=== PATIENT | female | born 1980 | race Caucasian/White ===

== ENCOUNTER → 2019-05-15 09:03 | Outpatient (BNVA) | payer MEDICAID, SELFPAY | PROVIDERS: Family Provider Nurse Practitioner Family; PCP Nurse Practitioner Family; Visit Provider Nurse Practitioner Family | DX: J02.0 Streptococcal pharyngitis (principal); J02.9 Acute pharyngitis, unspecified; R03.0 Elevated blood-pressure reading, without diagnosis of hypertension | CPT/HCPCS: 80053; 85025; 86308; 87081; 87880 ==

== ENCOUNTER → 2019-11-28 15:46 | Outpatient (BNVA) | payer MEDICAID, SELFPAY | PROVIDERS: Family Provider Nurse Practitioner Family; PCP Nurse Practitioner Family; Visit Provider Family Medicine | DX: J02.9 Acute pharyngitis, unspecified (principal); Z20.828 Contact with and (suspected) exposure to other viral communicable diseases | CPT/HCPCS: 87071; 87635 ==

== ENCOUNTER → 2020-05-23 09:28 | Outpatient (BNVA) | payer MEDICAID, SELFPAY | PROVIDERS: Family Provider Nurse Practitioner Family; PCP Nurse Practitioner Family; Visit Provider Nurse Practitioner Family | DX: N30.01 Acute cystitis with hematuria (principal); M54.9 Dorsalgia, unspecified; I10 Essential (primary) hypertension; R07.9 Chest pain, unspecified | CPT/HCPCS: 81003; 87086 ==

== ENCOUNTER → 2020-06-06 11:49 | Outpatient (BNVA) | payer MEDICAID, SELFPAY | PROVIDERS: Family Provider Nurse Practitioner Family; PCP Nurse Practitioner Family; Visit Provider Nurse Practitioner Family | DX: Z98.890 Other specified postprocedural states (principal); I10 Essential (primary) hypertension | CPT/HCPCS: 80048 ==

== ENCOUNTER → 2020-07-12 10:31 | Outpatient (BNVA) | payer MEDICAID, SELFPAY | PROVIDERS: Family Provider Nurse Practitioner Family; PCP Nurse Practitioner Family; Visit Provider Nurse Practitioner Family | DX: M25.552 Pain in left hip (principal) | CPT/HCPCS: 73502 ==

== ENCOUNTER → 2022-07-24 09:00 | Outpatient (BNVA) | payer OTHER, SELFPAY | PROVIDERS: Family Provider Nurse Practitioner Family; PCP Nurse Practitioner Family; Visit Provider Nurse Practitioner Family | DX: M25.562 Pain in left knee (principal) | CPT/HCPCS: 73562 ==

== ENCOUNTER → 2022-10-29 17:09 | Outpatient (BNVA) | payer OTHER, SELFPAY | PROVIDERS: Family Provider Nurse Practitioner Family; PCP Nurse Practitioner Family; Visit Provider Family Medicine | DX: R30.0 Dysuria (principal) | CPT/HCPCS: 81003 ==

== ENCOUNTER → 2022-11-09 10:15 | Outpatient (BNVA) | payer OTHER, SELFPAY | PROVIDERS: Family Provider Nurse Practitioner Family; PCP Nurse Practitioner Family; Visit Provider Nurse Practitioner Family | DX: R31.9 Hematuria, unspecified (principal) | CPT/HCPCS: 80053; 87086; 87491; 87591; 87661 ==

== ENCOUNTER → 2023-02-23 09:27 | Outpatient (BNVA) | payer OTHER, SELFPAY | PROVIDERS: Family Provider Nurse Practitioner Family; PCP Nurse Practitioner Family; Visit Provider Nurse Practitioner Family | DX: R05.9 Cough, unspecified (principal); J01.00 Acute maxillary sinusitis, unspecified; R50.9 Fever, unspecified; J01.10 Acute frontal sinusitis, unspecified | CPT/HCPCS: 87400; 87426 ==

== ENCOUNTER 2023-11-03 01:33 | Emergency (ER) | payer OTHER, SELFPAY ==
--- NOTE | 2023-11-03 01:51 | XRR_ITS ---
PROCEDURE INFORMATION: Exam: XR Left Forearm Exam date and time: 11/03/2023 2:06 AM Age: 42 years old Clinical indication: Injury or trauma; Other: Caught in equipment; Work related; Blunt trauma (contusions or hematomas); Arm, lower; Injury date: 11/03/2023; Injury details: Pts left lower arm was caught between machinery and a piece of wood; Additional info: Crush injury left proxima forearm TECHNIQUE: Imaging protocol: Radiologic exam of the left forearm. Views: 2 views. COMPARISON: No relevant prior studies available. FINDINGS: Bones/joints: No fracture. Soft tissues: Marked soft tissue swelling along the dorsal aspect of the forearm. XR/XR forearm LT 2V [id number] IMPRESSION: 1. Marked soft tissue swelling along the dorsal aspect of the forearm. 2. No fracture.
[2023-11-03 01:55] VITALS: BP 194/133; PULSE 97; RESP 18; TEMP 37.1; O2SAT 99; BMI 25.7
[2023-11-03 02:03] VITALS: BP 179/118; PULSE 93; RESP 16; O2SAT 98
--- NOTE | 2023-11-03 02:32 | W.ED.EXTPRO ---
HPI - Extremity Problem General: Chief complaint: Extremity Injury, Upper Stated complaint: Left Arm Injury Time Seen by Provider: 11/03/23 01:51 History of Present Illness: 35-year-old female who presents emergency room from work after having an injury at work. Her left arm got caught between a machine and a wood pile that was being moved. She has a large hematoma on the left forearm. She has some difficulty moving her fingers secondary to pain but has good sensation and can move them. Neurovascularly intact no other injuries. Related Data Previous Rx's Medication Instructions Recorded diclofenac sodium 1 % topical gel 4 g topical QID PRN pain #100 grams 10/01/23 (Voltaren Arthritis Pain) diclofenac sodium 75 mg 75 mg PO BID PRN pain #60 tabs 10/01/23 tablet,delayed release diclofenac sodium 50 mg 50 mg PO BID PRN pain #14 tabs 11/03/23 tablet,delayed release hydrocodone 5 mg-acetaminophen 325 1 tab PO Q6H PRN pain #20 tabs 11/03/23 mg tablet ondansetron 8 mg disintegrating 8 mg PO Q6H #14 tabs 11/03/23 tablet polyethylene glycol 3350 17 17 g PO DAILY #510 grams 11/03/23 gram/dose oral powder (Miralax) Allergies Allergy/AdvReac Type Severity Reaction Status Date / Time No Known Allergies Allergy Verified 10/29/22 17:06 Review of Systems Narrative: Constitutional symptoms: Negative except as documented in HPI. Skin symptoms: Negative except as documented in HPI. Eye symptoms: Negative except as documented in HPI. ENMT symptoms: Negative except as documented in HPI. Respiratory symptoms: Negative except as documented in HPI. Cardiovascular symptoms: Negative except as documented in HPI. Gastrointestinal symptoms: Negative except as documented in HPI. Genitourinary symptoms: Negative except as documented in HPI. Musculoskeletal symptoms: Negative except as documented in HPI. Neurologic symptoms: Negative except as documented in HPI. Psychiatric symptoms: Negative except as documented in HPI. Endocrine symptoms: Negative except as documented in HPI. [facility] ED PFSH: Medical History Chronic eczema of foot Surgical History Hx of tubal ligation Social History Smoking and tobacco/nicotine status: unknown if used tobacco/nicotine Second hand smoke exposure: No Alcohol intake: current Alcohol intake frequency: few times a month Substance/Drug Use: never Lives independently: Yes Household members: children Marital status: Current occupational status: employed Current occupation: [employer] Current gender identity: Female Special elizabeth needs: No Agree to transfusion: Yes Female Reproductive History: Date of last menstrual period: 10/03/23 Physical Exam Narrative: EXAM NARRATIVE: General: Alert, no acute distress. Skin: warm and dry Head: Normocephalic Neck: Trachea midline Eye: Extraocular movements are intact. Ears, nose, mouth and throat: Oral mucosa moist Respiratory: Respirations are non-labored Musculoskeletal: Large hematoma over the proximal dorsal left forearm. This is very tender to palpation. There is an abrasion superficial laceration as well. She is able to move her fingers but with much difficulty because of pain. Good sensation. Vascularly intact. Neurological: Alert and oriented, No focal neurological deficit observed. Psychiatric: Cooperative, appropriate mood & affect. Course Vital Signs: Vital signs: Vital Signs Temperature 98.7 F 11/03/23 01:55 Pulse Rate 93 11/03/23 02:03 Respiratory Rate 16 11/03/23 02:03 Blood Pressure 179/118 11/03/23 02:03 Pulse Oximetry 98 11/03/23 02:03 MDM - Extremity (Nontraumatic) Medical Decision Making X-ray of the left forearm: There is a large soft tissue swelling but no obvious fractures. Films were interpreted by myself the emergency room provider and pending final radiology review. Assessment and plan: Hematoma of the arm Crush injury ?P.manuel De Leon and Devin in the emergency room. Drug screen was sent for work injury - Discharged home - Discussed findings and plan with patient. Answered any questions. - All laboratory values were reviewed and interpreted personally by myself, the ER physician - All imaging was reviewed and interpreted personally by myself, the ER physician. - Evaluation and treatment of this problem were appropriate in the emergency setting Lab Data Laboratory Results Urine Opiates Screen Negative ng/mL (Negative) 11/03/23 01:56 Ur Barbiturates Screen Negative ng/mL (Negative) 11/03/23 01:56 Ur Phencyclidine Scrn Negative ng/mL (Negative) 11/03/23 01:56 Ur Amphetamines Screen Negative ng/mL (Negative) 11/03/23 01:56 U Benzodiazepines Scrn Negative ng/mL (Negative) 11/03/23 01:56 Urine Cocaine Screen Negative ng/mL (Negative) 11/03/23 01:56 U Marijuana (THC) Screen Positive ng/mL (Negative) H 11/03/23 01:56 XR interpretation done by ED provider, pending radiology final review Discharge Plan Discharge Patient Disposition: Home Clinical Impression: Hematoma of left forearm, Crush injury Condition: Stable Prescriptions: New ondansetron 8 mg tablet,disintegrating 8 mg PO Q6H Qty: 14 0RF Rx Instructions: Take 1/2-1 tab every 6 hours as needed for nausea and vomiting diclofenac sodium 50 mg tablet,delayed release (DR/EC) 50 mg PO BID PRN (Reason: pain) Qty: 14 0RF Miralax 17 gram/dose powder 17 g PO DAILY Qty: 510 0RF Rx Instructions: Take 1 scoop daily while taking pain medications. hydrocodone-acetaminophen 5-325 mg tablet 1 tab PO Q6H PRN (Reason: pain) Qty: 20 0RF No Action diclofenac sodium 75 mg tablet,delayed release (DR/EC) 75 mg PO BID PRN (Reason: pain) Qty: 60 0RF Rx Instructions: no ibuprofen with this diclofenac sodium [Voltaren Arthritis Pain] 1 % gel 4 g topical QID PRN (Reason: pain) Qty: 100 0RF methylprednisolone acetate [Depo-Medrol] 80 mg/mL suspension 80 mg intra-articular ONCE Qty: 1 0RF triamcinolone acetonide [Kenalog] 40 mg/mL suspension 40 mg intra-articular ONCE Qty: 1 0RF Discharge Orders: Discharge ED (Routine); Ordered 11/03/23 Ordered By: Kallie Rivera Referrals: Claudia Pinto FNP [Primary Care Provider] - Ramses Campo DO [Physician] - 1-3 days (Please call for a follow-up appointment.) Discharge Diet: Usual diet Discharge Activity: Resume usual activity Patient Instructions: Opioid Safety, Pain Management Activity Restrictions/Additional Instructions: Thank you for choosing [facility] for your healthcare needs today. Please realize this is an emergency room and that we are providing you with a medical screening exam and this may not be complete and all inclusive of all the testing and or work up that you may need to determine your ailment or severity of your illness. You have been screened and evaluated and felt safe for discharge. Health conditions do change or evolve sometimes and as such it is important that you follow up with your Primary Doctor to be re checked, 3-5 days is a general good time frame for follow up. You are always welcome to return to the ED for re assessment if your symptoms are worsening or you have new concerns Coding Level of Care Code ED Product Marketing Specialist for Josse Iniguez
[2023-11-03 02:34] LABS: Amphetamines Screen Urine Negative (Negative); Barbiturates Screen Urine Negative (Negative); Benzodiazepines Screen Urine Negative (Negative); Cocaine Screen Urine Negative (Negative); Opiate Screen Urine Negative (Negative); PCP Screen Urine Negative (Negative); THC Screen Urine Positive (Negative)
[2023-11-03] MEDS: ondansetron 4 MG Tablet PO (02:37)
[2023-11-03] MEDS: HYDROcodone-acetaminophen 10-325 mg Tablet 1 TAB PO (02:37)
== END 2023-11-03 02:52 | disposition home or self-care (01) ==
PROVIDERS: Emergency Provider Emergency Medicine; PCP Nurse Practitioner Family
DX: S50.12XA Contusion of left forearm, initial encounter (principal); S57.82XA Crushing injury of left forearm, initial encounter; W31.9XXA Contact with unspecified machinery, initial encounter; Y99.0 Civilian activity done for income or pay
CPT/HCPCS: 73090; 80306; 99284; Q0162

== ENCOUNTER → 2023-11-09 14:35 | Outpatient (BNVA) | payer OTHER, SELFPAY | PROVIDERS: PCP Nurse Practitioner Family; Visit Provider Physician Assistant | DX: S50.12XA Contusion of left forearm, initial encounter; W31.9XXA Contact with unspecified machinery, initial encounter | CPT/HCPCS: 73090 ==

== ENCOUNTER → 2023-11-26 08:12 | Outpatient (BNVA) | payer OTHER, SELFPAY | PROVIDERS: PCP Nurse Practitioner Family; Visit Provider Physician Assistant | DX: S50.12XA Contusion of left forearm, initial encounter; W23.0XXA Caught, crushed, jammed, or pinched between moving objects, initial encounter | CPT/HCPCS: 73090 ==

== ENCOUNTER 2023-12-03 09:16 | Outpatient (CLI) | payer OTHER, SELFPAY ==
--- NOTE | 2023-12-03 09:45 | MR_ITS ---
WS: [id number] MRI LEFT FOREARM WITHOUT CONTRAST. COMPARISON: Radiograph 11/26/2023 Multiplanar, multisequence imaging is performed without contrast. History: Crush incident at work on 11/03/2023. Continued mass. Continued pain. There is a well-circumscribed ovoid mass centered along the posterior mid forearm. The mass extends o alicia a length of 3.4 cm and transversely by 2.0 cm x 1.0 cm anterior posterior. This mass is in contac t and slightly deforms the extensor digitorum and extensor digiti minimi muscles. There is no signifi cant edema within any of the muscle groups. There is a small amount of superficial fluid extending ov er the fascial planes of the muscles associated closely with the hematoma. On the T1 sequences there is intermediate signal with a few scattered areas of decreased signal. The marrow signal is normal within the radius and ulna. No muscle atrophy. MR/MR forearm LT wo con* [id number] IMPRESSION: 1. Soft tissue mass along the dorsal forearm measures 2.0 x 1.0 x 3.4 cm and i s most consistent with an organizing hematoma. Slight mass effect upon the exte nsor digitorum and extensor digiti minimi muscles with a small amount of fluid along the fascial planes. 2. No muscle injury identified. No muscle atrophy. 3. No fracture.
== END 2023-12-03 09:17 | disposition home or self-care (01) ==
LOC: RAD 09:16
PROVIDERS: PCP Nurse Practitioner Family; Visit Provider Physician Assistant
DX: M79.603 Pain in arm, unspecified (principal); T14.8XXA Other injury of unspecified body region, initial encounter; S40.022A Contusion of left upper arm, initial encounter; R22.32 Localized swelling, mass and lump, left upper limb; Y93.9 Activity, unspecified; Y92.9 Unspecified place or not applicable; Y99.9 Unspecified external cause status
CPT/HCPCS: 73218

== ENCOUNTER 2023-12-06 14:55 | Outpatient (CLI) | payer OTHER, SELFPAY ==
--- NOTE | 2023-12-06 15:15 | MR_ITS ---
WS: [id number] EXAMINATION: MR elbow LT wo con* [id number] ORDER DATE: 12/06/2023 3:52 PM COMPARISON: None. HISTORY: elbow pain/crush injury to left upper extremity CONTRAST: None.None. TECHNIQUE: Axial T1, axial T2 fat sat, coronal T1, coronal proton density fat sat, coronal STIR, sagi ttal proton density fat sat, and axial fat sat 3D performed. FINDINGS: Normal anatomic alignment. Normal bone marrow signal. Radial and ulnar collateral ligaments appear in tact. No acute fractures. Normal coronoid process. Radial head appears normal. No significant joint e ffusion. Small amount of subcutaneous edema overlying the dorsal elbow. Normal triceps insertion. Nor mal biceps tendon insertion. Normal extensor and flexor common tendon origins. MR/MR elbow LT wo con* [id number] IMPRESSION: No acute elbow findings.
== END 2023-12-06 14:56 | disposition home or self-care (01) ==
LOC: RAD 14:56
PROVIDERS: PCP Nurse Practitioner Family; Visit Provider Physician Assistant
DX: S50.12XA Contusion of left forearm, initial encounter (principal); M25.522 Pain in left elbow; X58.XXXA Exposure to other specified factors, initial encounter
CPT/HCPCS: 73221

== ENCOUNTER 2023-12-07 09:14 | Outpatient (CLI) | payer OTHER, SELFPAY ==
--- NOTE | 2023-12-07 09:30 | MR_ITS ---
WS: [id number] EXAMINATION: MR wrist LT wo con* [id number] ORDER DATE: 12/07/2023 10:07 AM COMPARISON: None. HISTORY: wrist pain/crush injury to left upper extremity CONTRAST: None. TECHNIQUE: Axial T1, axial T2 fat sat, coronal T1, coronal proton density fat sat, coronal STIR, delgado nal 3D, and sagittal T1 performed. After contrast, axial T1 fat sat, coronal T1 fat sat, and sagittal T1 fat sat were performed. FINDINGS: Some images are limited due to motion. Normal anatomic alignment. No acute fractures. Normal DRUJ. Normal scaphoid. Normal lunate. Cystic de generative changes involving the capitate and hamate. Slight ulna minus variance. Suspected small tea r of the TFCC ulna insertion. Moderate narrowing of the radiocarpal joint. Normal carpal tunnel. Small amount of tenosynovitis along the extensor digitorum tendons. Palmar dis location ECU tendon along the distal ulna. Recommend correlation for ulnar wrist pain. Findings suspi cious for stripping of the ECU subsheath. MR/MR wrist LT wo con* [id number] IMPRESSION: 1. Mild ulna minus variance with suspected tear of the ulnar insertion TFCC. 2. Moderate narrowing of the radiocarpal joint. Scaphoid and lunate appear nor mal. 3. Cystic degenerative changes involving the distal carpal row. 4. Dislocation of the extensor carpi ulnaris with suspected stripping of the E CU subsheath. Palmar dislocation of the ECU tendon. Recommend correlation for u lnar-sided wrist pain.
== END 2023-12-07 09:15 | disposition home or self-care (01) ==
LOC: RAD 09:15
PROVIDERS: PCP Nurse Practitioner Family; Visit Provider Physician Assistant
DX: M85.642 Other cyst of bone, left hand (principal); S63.095A Other dislocation of left wrist and hand, initial encounter; S40.022A Contusion of left upper arm, initial encounter; X58.XXXA Exposure to other specified factors, initial encounter
CPT/HCPCS: 73221

== ENCOUNTER 2024-03-23 10:49 | Outpatient (RCR) | payer OTHER, SELFPAY | END 2024-04-21 23:59 | disposition home or self-care (01) | LOC: SOT 10:49 | PROVIDERS: Visit Provider Orthopaedic Surgery | DX: M65.849 Other synovitis and tenosynovitis, unspecified hand (principal) | CPT/HCPCS: 97022; 97035; 97110; 97166; 97530 ==

== ENCOUNTER 2024-04-22 06:00 | Outpatient (RCR) | payer OTHER, SELFPAY | END 2024-05-19 23:59 | disposition home or self-care (01) | LOC: SOT 06:00 | PROVIDERS: Visit Provider Orthopaedic Surgery | DX: M65.842 Other synovitis and tenosynovitis, left hand (principal) | CPT/HCPCS: 97035; 97110 ==

== ENCOUNTER 2024-05-20 06:00 | Outpatient (RCR) | payer OTHER, SELFPAY | END 2024-06-19 23:59 | disposition home or self-care (01) | LOC: SOT 06:00 | PROVIDERS: Visit Provider Orthopaedic Surgery | DX: M65.842 Other synovitis and tenosynovitis, left hand (principal) | CPT/HCPCS: 97110 ==

== ENCOUNTER 2024-06-20 05:00 | Outpatient (RCR) | payer OTHER, SELFPAY | END 2024-07-19 23:59 | disposition home or self-care (01) | LOC: SOT 05:00 | PROVIDERS: Visit Provider Orthopaedic Surgery | DX: M65.842 Other synovitis and tenosynovitis, left hand (principal) | CPT/HCPCS: 97110 ==

== ENCOUNTER → 2024-08-22 10:03 | Outpatient (BNVA) | payer OTHER, SELFPAY | PROVIDERS: Visit Provider Student in an Organized Health Care Education/Training Program | DX: M25.522 Pain in left elbow (principal); G56.03 Carpal tunnel syndrome, bilateral upper limbs; S63.592A Other specified sprain of left wrist, initial encounter; X58.XXXA Exposure to other specified factors, initial encounter | CPT/HCPCS: 73080 ==

== ENCOUNTER → 2024-09-18 13:04 | Outpatient (BNVA) | payer OTHER, SELFPAY | PROVIDERS: PCP Nurse Practitioner Family; Visit Provider Nurse Practitioner Family | DX: R07.81 Pleurodynia (principal) | CPT/HCPCS: 71101 ==

== ENCOUNTER 2024-10-04 15:24 | Outpatient (CLI) | payer OTHER, SELFPAY ==
--- NOTE | 2024-10-04 15:45 | US_ITS ---
WS: [id number] ULTRASOUND SOFT TISSUES LEFT lateral chest wall. HISTORY: R07.9 - Chest pain, unspecified COMPARISON: None available. TECHNIQUE: 2-D and color Doppler imaging is submitted. Ultrasound is performed over the LEFT lateral chest wall as directed by the patient. No soft tissue abnormality is identified. There is no mass or mass effect. Normal subcutaneous tissues. No fluid. No solid mass. US/US soft tissue/extremity [id number] IMPRESSION: Negative soft tissue ultrasound LEFT lateral chest wall.
== END 2024-10-04 15:25 | disposition home or self-care (01) ==
LOC: RAD 15:27
PROVIDERS: PCP Nurse Practitioner Family; Visit Provider Nurse Practitioner Family
DX: R10.9 Unspecified abdominal pain (principal)
CPT/HCPCS: 76882

== ENCOUNTER 2024-10-12 11:56 | Outpatient (CLI) | payer SELFPAY ==
--- NOTE | 2024-10-12 12:21 | MR_ITS ---
WS: [id number] MRI CERVICAL SPINE NONCONTRAST TECHNIQUE: Sagittal T1, T2 and STIR imaging. Axial T2, gradient, and fiesta imaging. CLINICAL INFORMATION: LT arm injury FINDINGS: Straightening of the normal cervical lordosis. Cord signal is normal. Mild disc bulging in the mid cervical spine. C2-C3: Normal. C3-C4: Mild disc bulging. Mild LEFT bony foraminal narrowing. C4-C5: Shallow central protrusion. Tiny annular fissure. Mild facet arthropathy. Mild LEFT bony foraminal narrowing. C5-C6: Central disc osteophyte protrusion. Mild central canal stenosis. Moderate bilateral bony foraminal narrowing. Moderate facet arthropathy with uncovertebral joint hypertrophy. C6-C7: Central protrusion with mild central canal stenosis. Severe RIGHT and moderate LEFT bony foraminal narrowing. Moderate facet arthropathy. C7-T1: Spinal canal and foramen are patent. Visualized brain stem structures: Normal. Prevertebral soft tissues: Normal. Tiny RIGHT thyroid nodule. MR/MR cervical spin wo con* [id number] IMPRESSION: 1. Mild central canal stenosis due to central disc osteophyte protrusions C5-C 6 and C6-C7. 2. Moderate to severe bony foraminal narrowing bilateral C5-C6 and bilateral C 6-7
== END 2024-10-12 11:57 | disposition home or self-care (01) ==
PROVIDERS: PCP Nurse Practitioner Family; Visit Provider Student in an Organized Health Care Education/Training Program
DX: G56.42 Causalgia of left upper limb (principal); M48.02 Spinal stenosis, cervical region; M25.78 Osteophyte, vertebrae
CPT/HCPCS: 72141

== ENCOUNTER → 2024-11-06 11:12 | Outpatient (BNVA) | payer OTHER, SELFPAY | PROVIDERS: PCP Nurse Practitioner Family; Visit Provider Nurse Practitioner Family | DX: I10 Essential (primary) hypertension (principal); E04.1 Nontoxic single thyroid nodule | CPT/HCPCS: 80053; 80061; 82306; 82607; 83735; 84439; 84443; 85025 ==

== ENCOUNTER 2024-11-10 13:35 | Outpatient (CLI) | payer OTHER, SELFPAY ==
--- NOTE | 2024-11-10 14:00 | US_ITS ---
WS: [id number] THYROID ULTRASOUND HISTORY: E04.1 - Nontoxic single thyroid nodule COMPARISON: MRI 10/12/2024 Right lobe: 1.5 cm x 2.0 cm x 4.5 cm (w x ap x l). Volume: 6.5 cm3. Very slightly enlarged and heterogeneous RIGHT thyroid. Increased vascularity. Hypoechoic nodules measuring 4 x 3 x 5 mm in the superior gland. No echogenic foci. Left lobe: 1.4 cm x 1.9 cm x 4.3 cm (w x ap x l). Volume: 5.2 cm3. Normal sized gland with mild heterogeneity. No mass identified. Very slight increased vascularity. Isthmus: 0.5 cm. US/US thyroid [id number] IMPRESSION: TI-RADS 3; mildly suspicious. RIGHT thyroid nodule superior pole. No additional ultrasound follow-up necessary as per TI-RADS criteria.
== END 2024-11-10 13:36 | disposition home or self-care (01) ==
PROVIDERS: PCP Nurse Practitioner Family; Visit Provider Nurse Practitioner Family
DX: E04.1 Nontoxic single thyroid nodule (principal)
CPT/HCPCS: 76536

== ENCOUNTER 2024-11-24 09:03 | Day surgery (SDC) | payer OTHER, SELFPAY ==
[2024-11-24] VITALS (7 sets, daily range): BP systolic 137–193; BP diastolic 108–122; PULSE 75–87; RESP 16–18; TEMP 36.3–36.6; O2SAT 93–97
[2024-11-24 09:27] LABS: OR HCG Qualitative Urine Negative (Negative)
--- NOTE | 2024-11-24 09:36 | P.ANESASSM_ITS ---
Pre-Anesthetic Assessment Height/Weight: Height 5 ft 4 in Preop Diagnosis: Carpal tunnel syndrome Operation Date: 11/24/24 10:25 Proposed Procedures p Carpal Tunnel Release(Right) - Ramses Campo, Was Beta Dipak taken within 24 hours: N/A Was Clonidine taken within 24 hours: N/A Social Tobacco and No alcohol Exam alert, oriented x 3, clear to auscultation bilaterally and regular rate & rhythm Airway Submandibular: within normal limits Cervical ROM: within normal limits Mallampati: Class III Comments: Comments: Multiple missing teeth, denies any loose Anesthetic Plan ASA status: 3 Anesthesia: MAC Other: No prior issues with anesthesia N.p.o. since yesterday evening Current smoker, nicotine and marijuana Denies any cardiac issues. States she gets whitecoat syndrome METs greater than 4 Plan for MAC anesthesia with local via surgeon Medications/Allergies Home Medications ?Medication ?Instructions ?Recorded ?Confirmed ?Last Taken ?Type diclofenac sodium 1 % topical gel 4 g topical QID PRN pain #100 grams 10/01/23 11/23/24 Unknown Rx (Voltaren Arthritis Pain) ibuprofen 200 mg capsule 200 mg PO Q6H PRN Pain 12/2011/23/24 Unknown History magnesium hydroxide 400 mg/5 mL 5 ml PO DAILY PRN Cons tipation 12/21/23 11/23/24 Unknown History oral suspension (Milk of Magnesia) hydrocodone 10 mg-acetaminophen 1 tab PO Q6H PRN pain 7 days #28 12/28/23 11/23/24 11/24/24 Rx 325 mg tablet tabs pregabalin 100 mg capsule 100 mg PO BID 10/03/2411/2311/24/24 History Allergies Allergy/AdvReac Type Severity Reaction Status Date / Time No Known Allergies Allergy Verified 11/03/24 13:49 [facility] Anesthesia Medical History Chronic eczema of foot Surgical History Hx of tubal ligation Social History Smoking and tobacco/nicotine status: current every day tobacco/nicotine user cigarettes Packs smoked per day: 1 Years cigarettes smoked: 20 Second hand smoke exposure: No Alcohol intake: current Alcohol intake frequency: few times a month Substance/Drug Use: never Lives independently: Yes Household members: children Marital status: Current occupational status: employed Current occupation: [employer] Current gender identity: Female Special elizabeth needs: No Agree to transfusion: Yes
[2024-11-24] MEDS: acetaminophen 1,000 MG/100 ML PIGGYBACK 400 MG IV (09:46)
--- NOTE | 2024-11-24 10:00 | W.PM.OPSFHP ---
Same Day Surgery H&P Indication for Procedure/HPI DATE OF PROCEDURE: November 24, 2024 CHIEF COMPLAINT/INDICATIONFOR SURGICAL PROCEDURE: Right carpal tunnel syndrome PREOP DIAGNOSIS: Right carpal tunnel syndrome PLANNED PROCEDURE: Operation Date: 11/24/24 10:25 Proposed Procedures p Carpal Tunnel Release(Right) - Ramses Campo DO Medications/Allergies* Home Medications ?Medication ?Instructions ?Recorded ?Confirmed ?Type ibuprofen 200 mg capsule 200 mg PO Q6H PRN Pain 12/21/23 11/23/24 History magnesium hydroxide 400 mg/5 mL 5 ml PO DAILY PRN Constipation 12/21/23 11/23/24 History oral suspension (Milk of Magnesia) pregabalin 100 mg capsule 100 mg PO BID 10/03/24 11/23/24 History Allergies/Adverse Reactions Allergy/AdvReac Type Severity Reaction Status Date / Time No Known Allergies Allergy Verified 11/03/24 13:49 Current Medications: Generic Name Dose Route Start Last Admin Trade Name Freq PRN Reason Stop Dose Admin Sodium Chloride 1,000 mls @ 30 mls/hr 11/24/24 09:15 11/24/24 09:46 Sodium Chloride 0.9% IV 11/25/24 09:14 30 mls/hr .Q24H JEFF Administration Pertinent History/Comorbid Conditions* Medical History (Updated 10/14/24 @ 22:30 by Ramses Campo DO) Chronic eczema of foot Surgical History (Updated 05/31/20 @ 09:27 by JOSEPH Zhang) Hx of tubal ligation Social History Smoking and tobacco/nicotine status: current every day tobacco/nicotine user cigarettes Packs smoked per day: 1 Years cigarettes smoked: 20 Second hand smoke exposure: No Alcohol intake: current Alcohol intake frequency: few times a month Substance/Drug Use: never Lives independently: Yes Household members: children Marital status: Current occupational status: employed Current occupation: [employer] Current gender identity: Female Special elizabeth needs: No Agree to transfusion: Yes Pertinent Exam Findings alert, oriented x 3, operative site marked and procedure specific exam findings Please refer to detailed orthopedic examination on 10/10/2024 listed below: Right Carpal Tunnel Exam Negative Spurling's negative Tinel's @ shoulder, Normal ROM (right) negative Tinel's @ elbow, Normal ROM (right) Positive median compression test (right) Positive Phalen's Thenar weakness Subtle atrophy noted. No Intrinsic atrophy noted bilaterally. Mild CMC TTP Negative CMC grind test Recommendations Risks and benefits of procedure reviewed and Patient/family agree to proceed Surgery/Procedure today Other Plans: Plan to proceed to the OR today for right carpal tunnel release. Patient understands the ins and outs procedure the risk benefits complication alternatives surgery. Understanding risk of surgery patient asked proceed with surgical invention. All questions answered at this time Coding Level of Care Code Acute Code for Chg Fwd
[2024-11-24] MEDS: ceFAZolin 2,000 MG in sodium chloride 0.9% (plus) 50 ML 100 MG IV (10:07)
[2024-11-24] MEDS: lidocaine-epi 1% 20 mL INJ 5 ML INJECTION (10:35)
[2024-11-24] MEDS: ROPivacaine 0.5% SDV 30 mL 25 MG INJECTION (10:36)
--- NOTE | 2024-11-24 10:52 | PC.NURSE ---
BP elevated. Called anesthesia
--- NOTE | 2024-11-24 10:52 | PC.NURSE ---
scds on patient not foot pumps
--- NOTE | 2024-11-24 10:56 | PC.NURSE ---
moved bp cuff from leg to arm bp 137/109. no new orders at this time.
--- NOTE | 2024-11-24 11:28 | W.PM.BPON ---
Date of Procedure: 11/24/2024 Surgeon: Ramses Campo DO Blind Teacher(s): None Procedure(s) performed: Right carpal tunnel release Findings of the procedure(s): Patient underwent procedure as planned without issues or complications, taken recovery in stable condition. Estimated blood loss: 3 mL Specimen(s) removed: None Post-operative diagnosis: Right carpal tunnel syndrome
--- NOTE | 2024-11-24 11:29 | P.OP_ITS ---
Operative Report Date of procedure: November 24, 2024 Surgeon: Ramses Campo DO Procedure: Preop Diagnosis: Right Carpal Tunnel Syndrome Post-op diagnosis: Same Procedure done: 1. Right carpal tunnel release Surgeon: Ramses Campo DO Anesthesia: MAC (Local) Estimated blood loss: [3]mL Tourniquet time [5]minutes IV fluids: See anesthesia record Complications: None Findings: See operative report narrative Condition: stable Disposition: same day Brief History: Patient is a pleasant [ 44 ]year-old [female ] with right carpal tunnel syndrome. Patient has been worked up in the outpatient setting findings and phy sical examination consistent with this. Patient nerve conduction studies consistent with carpal tunnel syndrome. We detailed out patient's risk benefits complication alternatives with surgical and nonsurgical treatment options. Through shared decision making, patient agrees to proceed with surgical intervention of the right carpal tunnel release . Patient understands and agrees with current plan. All questions answered. Patient elects to proceed with surgical intervention. Procedure: Patient seen and evaluated in the preoperative holding area. Consent was reviewed and signed with patient. Correct extremity was marked. Patient was seen evaluated by the anesthesia department once cleared for surgery was brought back to the operative suite. Patient was kept on [facility] in supine position all bony prominences were well-padded patient properly secured to the bed. Right upper extremity was then placed onto an armboard. A nonsterile tourniquet was applied to the Right upper arm. Patient underwent anesthesia per the anesthesia department. Patient's Right upper extremity was then prepped and draped in standard orthopedic fashion. Final timeout performed. Patient rece ived appropriate preoperative antibiotics. Under sterile aseptic technique patient received local anesthesia over the preplanned carpal tunnel incision site. Esmarch was used to exsanguinate the Right upper extremity and tourniquet was insufflated to 250 mmHg. A standard mini open Right carpal tunnel incision was made. Starting distally at Watts's cardinal line in line with the fourth ray extending proximally distal to the wrist crease centered over the carpal tunnel. Sharp scalpel incision was made through skin and subcutaneous tissue. Self-retaining retractor was placed and the palmar fascia was identified. This was then split longitudinally and direct visualization of the transverse carpal ligament was then made. I then utilizing scalpel feathered through the transverse carpal ligament until I entered the floor of the transverse carpal tunnel ligament into the carpal tunnel. Next I switched to dissection scissors and completed my release of the transverse carpal ligament distally with care to protect the recurrent motor branch. I completely released into the palmar fat and until no entrapment was noted distally. Care was made to protect the superficial palmar arch during my distal dissection. Next I utilized a nasal speculum placed on top of the transverse carpal ligament and utilize this to retract the subcutaneous fat and tissue and under direct loupe magnification was able to identify the transverse carpal ligament. Next I then protected the contents of the carpal tunnel and subsequently utilizing dissection scissors under loupe magnification completely released the transverse carpal ligament proximally into the antebrachial fascia. Care was made to protect the palmar cutaneous branch by keeping my scissors curved ulnarly. Once completely released, I then placed my [place] and had appropriate decompression of the carpal tunnel proximally as well as distally. I then inspected the contents of the carpal tunnel which showed an hourglass shape of the median nerve showing its compression. No masses were noted. Tendons appeared healthy. Wound was then thoroughly irrigated. Tourniquet deflated. Hemostasis satisfactory with bipolar electrocautery. I then closed the incision with interrupted nylon stitches. Xeroform 4 x 4's and a bulky soft dressing was applied. Patient was then awakened from anesthesia and taken to PACU in stable condition. Patient tolerated procedure without complications. Disposition: Patient taken to PACU in stable condition recovering well. Dressing clean dry and intact. Patient will receive appropriate discharge instructions as well as pain medication postoperatively. Patient to follow-up with me in the office in 2 weeks. They understand they may be weightbearing as tolerated to the right hand, limit heavy lifting. Patient should keep incision clean dry and intact. Patient understands if any questions or concerns may contact the office.
--- NOTE | 2024-11-24 11:47 | ANE.PACU2 ---
Inpatient post-anesthesia follow up: Airway intact: Yes Vital signs: Temperature 97.3 F Pulse Rate 75 Respiratory Rate 16 Blood Pressure 150/109 Pulse Oximetry 96 Oxygen Delivery Me thod Room Air Oxygen Flow Rate Fraction of Inspir ed Oxygen Hydration adequate: Yes Nausea and vomiting: No Pain level: 1 Mental status: Baseline
== END 2024-11-24 11:40 | disposition home or self-care (01) ==
PROVIDERS: Student in an Organized Health Care Education/Training Program; PCP Nurse Practitioner Family; Visit Provider Student in an Organized Health Care Education/Training Program
PROC: (CPT 64721; principal; 2024-11-24 10:15)
DX: G56.01 Carpal tunnel syndrome, right upper limb (principal); F17.210 Nicotine dependence, cigarettes, uncomplicated; F12.90 Cannabis use, unspecified, uncomplicated
CPT/HCPCS: 64721; 81025; J0131; J0690; J1885; J2704; J2795; J3010; J7030; J9999